=== PATIENT | male | born 1980 | race Caucasian/White ===

== ENCOUNTER 2018-01-11 05:46 | Observation (INO) | payer OTHER ==
[2018-01-11 06:21] VITALS: BMI 26.6
--- NOTE | 2018-01-11 07:14 | PDOC ---
History of Present Illness - General Chief Complaint: Chest Pain Stated Complaint: CHEST DISCOMFORT Time Seen by Provider: 01/11/18 07:14 - History of Present Illness Initial Comments: 01/11/18 08:16 The patient is a 37 year old male with no significant PMH who presents for evaluation of chest pain and palpitations. The patient reports that he used cocaine yesterday evening and has been having palpitations and left sided chest discomfort prompting his presentation to the ED for further evaluation. He notes that he has used cocaine in the past, but has never experienced these symptoms before. He otherwise denies fevers, chills, SOB, nausea, vomiting, abdominal pain, or changes with urination or bowel movements. Past History - Past Medical History Allergies/Adverse Reactions: Allergies Allergy/AdvReac Type Severity Reaction Status Date / Time No Known Allergies Allergy Verified 01/11/18 06:20 Home Medications: Ambulatory Orders NK [No Known Home Medication] 01/11/18 - Suicide/Smoking/Psychosocial Hx Smoking History: Never smoked Have you smoked in the past 12 months: No Number of Cigarettes Smoked Daily: 0 Information on smoking cessation initiated: No Hx Alcohol Use: No Drug/Substance Use Hx: No Substance Use Type: None Review of Systems - Review of Systems Comments:: 01/11/18 08:18 Constitutional: No fevers, chills, fatigue, malaise HEENT: No Rhinorrhea, nasal congestion, visual changes Cardiovascular: Chest pain, palpitations. No syncope, lightheadedness Respiratory: No Cough, SOB, Hemoptysis, Gastrointestinal: No Abdominal pain, Nausea, Vomiting, Constipation, Diarrhea, Melena Genitourinary: No Dysuria, Frequency, Urgency, Hesitancy, Hematuria, Flank pain Musculoskeletal: No Myalgia, arthralgia Skin: No rashes, itching, bruising, pallor Neurologic: No Headache, Dizziness, Numbness, Weakness, or Tingling Psychiatric: No Hallucinations. No SI or HI *Physical Exam - Vital Signs Last Vital Signs Temp Pulse Resp BP Pulse Ox 97.4 F L 86 20 117/70 97 01/11/18 06:20 01/11/18 06:20 01/11/18 06:20 01/11/18 06:20 01/11/18 06:20 - Physical Exam Comments: 01/11/18 08:18 General Appearance: Nourished. No Apparent Distress HEENT: No Pharyngeal Erythema, Tonsillar Exudate, Tonsillar Erythema Neck: No Cervical Lymphadenopathy Respiratory/Chest: Lungs Clear, Normal Breath Sounds. No Crackles, Rales, Rhonchi, Wheezing Cardiovascular: Regular Rhythm, Regular Rate. No Murmur, Gallops, Rubs Gastrointestinal/Abdominal: Normal Bowel Sounds, Soft. No Guarding, Rebound, Tenderness Musculoskeletal: No CVA Tenderness Extremity: Normal Capillary Refill Integumentary: Normal Color, Dry, Warm Neurologic: Fully Oriented, Alert, Normal Mood/Affect, Normal Response, Heart Score/ECG Review #1 ECG reviewed & interpreted by me at: 08:19 General ECG Interpretation: Sinus Rhythm, Normal Rate, Normal Intervals, No acute ischemic changes ED Treatment Course - LABORATORY CBC & Chemistry Diagram: 01/11/18 07:40 01/11/18 07:40 Medical Decision Making - Medical Decision Making 01/11/18 08:19 The patient is a 37 year old male with no significant PMH who presents for evaluation of chest pain and palpitations. Differential includes but is not limited to: ACS, Musculoskeletal, Infectious, Metabolic Derangement. Given the patient's symptoms and physical exam, we will obtain a cbc, cmp, troponin, ua, urine tox, ekg, chest plain film to evaluate further. Given his history of cocaine use, it is likely his symptoms are related and the patient will likely require observation admission for further monitoring given his symptoms and cocaine use. We will continue to monitor and reassess while here in the ED. 01/11/18 16:26 CBC, cmp, troponin are unremarkable. Chest plain film is unremarkable. We discussed the case with the admitting team who accepted the patient for admission. *DC/Admit/Observation/Transfer Diagnosis at time of Disposition: Palpitations, Cocaine use Chest pain Qualifiers: Chest pain type: unspecified Qualified Code(s): R07.9 - Chest pain, unspecified - Discharge Dispostion Condition at time of disposition: Stable Decision to Admit order: Yes - Referrals - Patient Instructions - Post Discharge Activity
[2018-01-11] MEDS ORDERED: ACETAMINOPHEN 1000 MG/100 ML VIAL (NON FORMULARY) IVPB ONE (07:26)
[2018-01-11] MEDS ORDERED: ACETAMINOPHEN INJECTION 100 ML IVPB ONE (07:53)
--- NOTE | 2018-01-11 07:59 | PDOC ---
Attending Attestation - Resident Resident Name: Shyam Miner - ED Attending Attestation I have performed the following: I have examined & evaluated the patient, The case was reviewed & discussed with the resident, I agree w/resident's findings & plan, Exceptions are as noted - HPI HPI: 37 yo M no significant PMH presents with cp and palpitations. He states that he used cocaine last night, developed palpitations, chest pressure. He has used cocaine in the past but never had these symptoms before. No cough, fever, SOB, leg swelling. No prior history of heart problems, and he states that he had a negative workup once before. - Physicial Exam PE: GENERAL: Awake, alert, and fully oriented, in no acute distress HEAD: No signs of trauma EYES: PERRLA, EOMI, sclera anicteric, conjunctiva clear ENT: Auricles normal inspection, hearing grossly normal, nares patent, oropharynx clear without exudates. Moist mucosa NECK: Normal ROM, supple, no lymphadenopathy, JVD, or masses LUNGS: Breath sounds equal, clear to auscultation bilaterally. No wheezes, and no crackles HEART: Regular rate and rhythm, normal S1 and S2, no murmurs, rubs or gallops ABDOMEN: Soft, nontender, normoactive bowel sounds. No guarding, no rebound. No masses EXTREMITIES: Normal range of motion, no edema. No clubbing or cyanosis. No cords, erythema, or tenderness NEUROLOGICAL: Cranial nerves II through XII grossly intact. Normal speech, normal gait SKIN: Warm, Dry, normal turgor, no rashes or lesions noted. - Medical Decision Making Pt presents with cocaine chest pain. Currently c/o palpitations, but the chest pressure has resolved. Will obtain labs and plan on admission vs obs.
[2018-01-11 08:00] LABS: BASO % 0.5 % (0-2.0); EOS % 1.7 % (0-4.5); HEMATOCRIT 42.7 % (35.4-49); HEMOGLOBIN 14.5 GM/dL (11.7-16.9); LYMPH % 24.5 % (8-40); MEAN CELL VOLUME 82.3 fl (80-96); MEAN PLT VOLUME 8.6 fl (7.5-11.1); MONO % 8.2 % (3.8-10.2); NEUT % 65.1 % (42.8-82.8); PLATELET COUNT 207 K/MM3 (134-434); RBC 5.19 M/mm3 (4.00-5.60); RDW 13.2 % (11.9-15.9); WHITE BLOOD COUNT 7.2 K/mm3 (4.0-10.0)
[2018-01-11 08:31] LABS: ALBUMIN 3.7 g/dl (3.4-5.0); ANION GAP 8 (8-16); BILIRUBIN,TOTAL 0.6 mg/dL (0.2-1.0); BLOOD UREA NITROGEN 9 mg/dL (7-18); CALCIUM 8.8 mg/dL (8.5-10.1); CHLORIDE 109 mmol/L (98-107); CO2 27 mmol/L (21-32); GLUCOSE,RANDOM 73 mg/dL (74-106); POTASSIUM 4.4 mmol/L (3.5-5.1); SGOT/AST 23 U/L (15-37); SGPT/ALT 33 U/L (12-78); SODIUM 144 mmol/L (136-145); TOT PROT 7.2 g/dl (6.4-8.2)
[2018-01-11 08:34] LABS: ALK PHOS 89 U/L (45-117)
--- NOTE | 2018-01-11 08:50 | HP ---
CHIEF COMPLAINT: Chest pressure and palpitations PCP: None HISTORY OF PRESENT ILLNESS: The patient is a 37 year old male with a PMH significant for renal calculi, presents for evaluation of chest pain and palpitations. The patient reports that he used cocaine yesterday evening and has been having palpitations and left sided chest discomfort prompting his presentation to the ED for further evaluation. He notes that he has used cocaine in the past, but has never experienced these symptoms before. He otherwise denies fevers, chills, SOB, nausea, vomiting, abdominal pain, or changes with urination or bowel movements. ER course was notable for: (1) Utox +cocaine (2) Trop neg x 1 Recent Travel: No PAST MEDICAL HISTORY: Renal calculi PAST SURGICAL HISTORY: None reported Social History: Smoking: no Alcohol: no Drugs: cocaine on weekends Family History: Allergies No Known Allergies Allergy (Verified 01/11/18 06:20) HOME MEDICATIONS: Home Medications Medication Instructions Recorded NK [No Known Home Medication] 01/11/18 REVIEW OF SYSTEMS CONSTITUTIONAL: Absent: fever, chills, diaphoresis, generalized weakness, malaise, loss of appetite, weight change HEENT: Absent: rhinorrhea, nasal congestion, throat pain, throat swelling, difficulty swallowing, mouth swelling, ear pain, eye pain, visual changes CARDIOVASCULAR: +chest pain/pressure, palpitations Absent: syncope, palpitations, lightheadedness, peripheral edema RESPIRATORY: Absent: cough, shortness of breath, dyspnea with exertion, orthopnea, wheezing, stridor, hemoptysis GASTROINTESTINAL: Absent: abdominal pain, abdominal distension, nausea, vomiting, diarrhea, constipation, melena, hematochezia GENITOURINARY: Absent: dysuria, frequency, urgency, hesitancy, hematuria, flank pain, genital pain MUSCULOSKELETAL: Absent: myalgia, arthralgia, joint swelling, back pain, neck pain SKIN: Absent: rash, itching, pallor HEMATOLOGIC/IMMUNOLOGIC: Absent: easy bleeding, easy bruising, lymphadenopathy, frequent infections ENDOCRINE: Absent: unexplained weight gain, unexplained weight loss, heat intolerance, cold intolerance NEUROLOGIC: Absent: headache, focal weakness or paresthesias, dizziness, unsteady gait, seizure, mental status changes, bladder or bowel incontinence PSYCHIATRIC: Absent: anxiety, depression, suicidal or homicidal ideation, hallucinations. PHYSICAL EXAMINATION Vital Signs - 24 hr 01/11/18 06:20 Temperature 97.4 F L Pulse Rate 86 Respiratory 20 Rate Blood Pressure 117/70 O2 Sat by Pulse 97 Oximetry (%) GENERAL: Awake, alert, and fully oriented, in no acute distress. HEAD: Normal with no signs of trauma. EYES: Pupils equal, round and reactive to light, extraocular movements intact, sclera anicteric, conjunctiva clear. No lid lag. EARS, NOSE, THROAT: Ears normal, nares patent, oropharynx clear without exudates. Moist mucous membranes. NECK: Normal range of motion, supple without lymphadenopathy, JVD, or masses. LUNGS: Breath sounds equal, clear to auscultation bilaterally. No wheezes, and no crackles. No accessory muscle use. HEART: Regular rate and rhythm, normal S1 and S2 without murmur, rub or gallop. ABDOMEN: Soft, nontender, not distended, normoactive bowel sounds, no guarding, no rebound, no masses. No hepatomegaly or splenomegaly. MUSCULOSKELETAL: Normal range of motion at all joints. No bony deformities or tenderness. No CVA tenderness. UPPER EXTREMITIES: 2+ pulses, warm, well-perfused. No cyanosis. No clubbing. No peripheral edema. LOWER EXTREMITIES: 2+ pulses, warm, well-perfused. No calf tenderness. No peripheral edema. NEUROLOGICAL: Cranial nerves II-XII intact. Normal speech. Steady on feet. Laboratory Results - last 24 hr 01/11/18 01/11/18 07:40 07:40 WBC 7.2 RBC 5.19 Hgb 14.5 Hct 42.7 MCV 82.3 MCH 28.0 MCHC 34.0 RDW 13.2 Plt Count 207 MPV 8.6 Absolute Neuts (auto) 4.7 Neutrophils % 65.1 Lymphocytes % 24.5 D Monocytes % 8.2 Eosinophils % 1.7 Basophils % 0.5 Nucleated RBC % 0 Sodium 144 Potassium 4.4 Chloride 109 H Carbon Dioxide 27 Anion Gap 8 BUN 9 Creatinine 1.0 Creat Clearance w eGFR > 60 Random Glucose 73 L D Calcium 8.8 Total Bilirubin 0.6 AST 23 ALT 33 Alkaline Phosphatase 89 Creatine Kinase 92 Troponin I < 0.02 Total Protein 7.2 Albumin 3.7 ASSESSMENT/PLAN: 37 year-old male with a PMH significant for renal calculi. Placed on observation for an episode of chest pain after using cocaine. Chest pain --troponin neg x 1, two pending --ECG: not suggestive of acute ischemic event --CXR: unremarkable --telemetry monitoring --echo ordered --cardiology consult --no beta blockers --ASA 81mg Cocaine use --Utox + cocaine DVT prophylaxis: oob, ambulation Dispo: requires continued observation. Full code. Visit type - Emergency Visit Emergency Visit: Yes ED Registration Date: 01/11/18 Care time: The patient presented to the Emergency Department on the above date and was hospitalized for further evaluation of their emergent condition. - New Patient This patient is new to me today: Yes Date on this admission: 01/11/18 - Critical Care Critical Care patient: No Hospitalist Screening - Colonoscopy Questionnaire Colonoscopy Questionnaire: Colonoscopy Questionnaire - Patient: 50 - 75 years old and never had a screening colonoscopy: No History of colon or rectal polyps, or CA: No History of IBD, Crohn's disease or UC: No History of abdominal radiation therapy as a child: No - Relative: 1 with colon or rectal CA, or polyps at age 60 or younger: Unknown Colon or rectal CA diagnosed at age 45 or younger: Unknown Multiple relatives with colon or rectal CA: Unknown - Outcome: Screening Result: Negative Screen
[2018-01-11 08:57] LABS: URINE APPEARANCE CLEAR; URINE BILIRUBIN NEGATIVE (<2.0 mg/dL); URINE COLOR YELLOW; URINE GLUCOSE (UA) NEGATIVE (NEGATIVE); URINE KETONE NEGATIVE (NEGATIVE); URINE LEUK ESTERASE NEGATIVE (NEGATIVE); URINE NITRITE NEGATIVE (NEGATIVE); URINE PROTEIN NEGATIVE (NEGATIVE); URINE UROBILINOGEN NEGATIVE mg/dL (0.2-1.0)
--- NOTE | 2018-01-11 08:58 | EKG ---
Test Reason : Blood Pressure : / mmHG Vent. Rate : 073 BPM Atrial Rate : 073 BPM P-R Int : 198 ms QRS Dur : 088 ms QT Int : 354 ms P-R-T Axes : 055 060 039 degrees QTc Int : 389 ms NORMAL SINUS RHYTHM WITH SINUS ARRHYTHMIA NORMAL ECG WHEN COMPARED WITH ECG OF 25-MAY-2011 00:02, NONSPECIFIC T WAVE ABNORMALITY NO LONGER EVIDENT IN ANTERIOR LEADS Confirmed by JOHN TINAJERO, GEORGI ([id number]) on 01/11/2018 8:58:29 AM Referred By: Confirmed By:GEORGI LOPEZ MD
[2018-01-11 09:36] LABS: COCAINE, UR POSITIVE ng/ml (CUTOFF=300); METHADONE, UR NEGATIVE ng/ml (CUTOFF=300); OPIATES, URI NEGATIVE ng/ml (CUTOFF=300); PHENCYCLIDINE,URINE NEGATIVE ng/ml (CUTOFF=25); URINE AMPHETAMINES NEGATIVE ng/ml (CUTOFF=500); URINE BARBITURATES NEGATIVE ng/ml (CUTOFF=200); URINE BENZODIAZEPINES NEGATIVE ng/ml (CUTOFF=200)
[2018-01-11] MEDS: ASPIRIN COATED 81 MG TABLET.EC PO SCH (18:17)
[2018-01-11] MEDS ORDERED: ASPIRIN COATED 81 MG TABLET.EC ONE ×2 (18:18→19:17)
[2018-01-11] MEDS ORDERED: SODIUM CHLORIDE 1,000 ML IV STA (19:03)
[2018-01-11] MEDS ORDERED: SODIUM CHLORIDE 1,000 ML IV SCH (19:15)
[2018-01-12 07:52] LABS: ANION GAP 5 (8-16); BLOOD UREA NITROGEN 13 mg/dL (7-18); CALCIUM 8.6 mg/dL (8.5-10.1); CHLORIDE 106 mmol/L (98-107); CO2 28 mmol/L (21-32); CREATININE 0.9 mg/dL (0.7-1.3); GLUCOSE,RANDOM 82 mg/dL (74-106); MAGNESIUM 1.9 mg/dL (1.8-2.4); POTASSIUM 4.3 mmol/L (3.5-5.1); SODIUM 139 mmol/L (136-145)
[2018-01-12] MEDS: ASPIRIN COATED 81 MG TABLET.EC PO SCH (10:03)
--- NOTE | 2018-01-12 11:25 | EKG ---
Test Reason : Blood Pressure : / mmHG Vent. Rate : 058 BPM Atrial Rate : 058 BPM P-R Int : 188 ms QRS Dur : 090 ms QT Int : 390 ms P-R-T Axes : 053 069 040 degrees QTc Int : 382 ms SINUS BRADYCARDIA OTHERWISE NORMAL ECG WHEN COMPARED WITH ECG OF 11-JAN-2018 06:23, NO SIGNIFICANT CHANGE WAS FOUND Confirmed by DORETHA GOULD MD ([id number]) on 01/12/2018 11:25:07 AM Referred By: LEONARD REY Confirmed By:DORETHA GOULD MD
--- NOTE | 2018-01-12 12:23 | CON.CARD ---
Consult Consult Specialty:: Cardiology Reason for Consultation:: induced CP - History of Present Illness History of Present Illness: 37 yo M no significant PMH presents with cp and palpitations. He states that he used cocaine last night, developed palpitations, chest pressure. He has used cocaine in the past but never had these symptoms before. No cough, fever, SOB, leg swelling. No prior history of heart problems, and he states that he had a negative workup once before. - History Source History Provided By: Patient, Medical Record - Alcohol/Substance Use Hx Alcohol Use: No - Smoking History Smoking history: Never smoked Have you smoked in the past 12 months: No Aproximately how many cigarettes per day: 0 Home Medications - Allergies Allergies/Adverse Reactions: Allergies Allergy/AdvReac Type Severity Reaction Status Date / Time No Known Allergies Allergy Verified 01/11/18 06:20 - Home Medications Home Medications: Ambulatory Orders NK [No Known Home Medication] 12/06/17 NK [No Known Home Medication] 01/11/18 Review of Systems - Review of Systems Constitutional: reports: No Symptoms Eyes: reports: No Symptoms HENT: reports: No Symptoms Neck: reports: No Symptoms Cardiovascular: reports: Chest Pain Gastrointestinal: reports: No Symptoms Genitourinary: reports: No Symptoms Breasts: reports: No Symptoms Reported Musculoskeletal: reports: No Symptoms Integumentary: reports: No Symptoms Neurological: reports: No Symptoms Endocrine: reports: No Symptoms Hematology/Lymphatic: reports: No Symptoms Psychiatric: reports: No Symptoms Vital Signs: Vital Signs Temperature 97.8 F 01/12/18 08:23 Pulse Rate 56 L 01/12/18 08:23 Respiratory Rate 18 01/12/18 08:31 Blood Pressure 116/61 01/12/18 08:23 O2 Sat by Pulse Oximetry (%) 98 01/12/18 08:31 Constitutional: Yes: Well Nourished, No Distress, Calm Eyes: Yes: WNL, Conjunctiva Clear, EOM Intact HENT: Yes: WNL, Atraumatic, Normocephalic Neck: Yes: WNL, Supple, Trachea Midline Respiratory: Yes: WNL, Regular, CTA Bilaterally Gastrointestinal: Yes: WNL, Normal Bowel Sounds Renal/: Yes: WNL Cardiovascular: Yes: WNL, Regular Rate and Rhythm Musculoskeletal: Yes: WNL Extremities: Yes: WNL Integumentary: Yes: WNL Neurological: Yes: WNL, Alert, Oriented ...Motor Strength: WNL Psychiatric: Yes: WNL, Alert, Oriented - Other Data Labs, Other Data: CBC, BMP 01/11/18 07:40 01/12/18 06:00 Troponin, BNP 01/11/18 01/11/18 14:15 19:59 Troponin I < 0.02 < 0.02 Troponin, BNP 01/11/18 01/11/18 14:15 19:59 Troponin I < 0.02 < 0.02 Laboratory Tests 01/11/18 01/11/18 01/11/18 07:40 07:40 08:15 WBC 7.2 RBC 5.19 Hgb 14.5 Hct 42.7 MCV 82.3 MCH 28.0 MCHC 34.0 RDW 13.2 Plt Count 207 MPV 8.6 Absolute Neuts (auto) 4.7 Neutrophils % 65.1 Lymphocytes % 24.5 D Monocytes % 8.2 Eosinophils % 1.7 Basophils % 0.5 Nucleated RBC % 0 Sodium 144 Potassium 4.4 Chloride 109 H Carbon Dioxide 27 Anion Gap 8 BUN 9 Creatinine 1.0 Creat Clearance w eGFR > 60 Random Glucose 73 L D Calcium 8.8 Magnesium Total Bilirubin 0.6 AST 23 ALT 33 Alkaline Phosphatase 89 Creatine Kinase 92 Troponin I < 0.02 Total Protein 7.2 Albumin 3.7 Urine Color Yellow Urine Appearance Clear Urine pH 5.0 Ur Specific Stephan 1.017 Urine Protein Negative Urine Glucose (UA) Negative Urine Ketones Negative Urine Blood Negative Urine Nitrite Negative Urine Bilirubin Negative Urine Urobilinogen Negative Ur Leukocyte Esterase Negative Opiates Screen Methadone Screen Barbiturate Screen Phencyclidine Screen Ur Amphetamines Screen MDMA (Ecstasy) Screen Benzodiazepines Screen Cocaine Screen U Marijuana (THC) Screen 01/11/18 01/11/18 01/11/18 08:15 14:15 19:59 WBC RBC Hgb Hct MCV MCH MCHC RDW Plt Count MPV Absolute Neuts (auto) Neutrophils % Lymphocytes % Monocytes % Eosinophils % Basophils % Nucleated RBC % Sodium Potassium Chloride Carbon Dioxide Anion Gap BUN Creatinine Creat Clearance w eGFR Random Glucose Calcium Magnesium Total Bilirubin AST ALT Alkaline Phosphatase Creatine Kinase Troponin I < 0.02 < 0.02 Total Protein Albumin Urine Color Urine Appearance Urine pH Ur Specific Stephan Urine Protein Urine Glucose (UA) Urine Ketones Urine Blood Urine Nitrite Urine Bilirubin Urine Urobilinogen Ur Leukocyte Esterase Opiates Screen Negative Methadone Screen Negative Barbiturate Screen Negative Phencyclidine Screen Negative Ur Amphetamines Screen Negative MDMA (Ecstasy) Screen Negative Benzodiazepines Screen Negative Cocaine Screen Positive U Marijuana (THC) Screen Negative 01/12/18 06:00 WBC RBC Hgb Hct MCV MCH MCHC RDW Plt Count MPV Absolute Neuts (auto) Neutrophils % Lymphocytes % Monocytes % Eosinophils % Basophils % Nucleated RBC % Sodium 139 Potassium 4.3 Chloride 106 Carbon Dioxide 28 Anion Gap 5 L BUN 13 Creatinine 0.9 Creat Clearance w eGFR > 60 Random Glucose 82 Calcium 8.6 Magnesium 1.9 Total Bilirubin AST ALT Alkaline Phosphatase Creatine Kinase Troponin I Total Protein Albumin Urine Color Urine Appearance Urine pH Ur Specific Stephan Urine Protein Urine Glucose (UA) Urine Ketones Urine Blood Urine Nitrite Urine Bilirubin Urine Urobilinogen Ur Leukocyte Esterase Opiates Screen Methadone Screen Barbiturate Screen Phencyclidine Screen Ur Amphetamines Screen MDMA (Ecstasy) Screen Benzodiazepines Screen Cocaine Screen U Marijuana (THC) Screen Imaging - Results Chest X-ray: Image Reviewed (no i/e) EKG: Image Reviewed (s amelia wnl) Problem List - Problems (1) Chest pain Code(s): R07.9 - CHEST PAIN, UNSPECIFIED Qualifiers: Chest pain type: unspecified Qualified Code(s): R07.9 - Chest pain, unspecified (2) Cocaine use Code(s): F14.90 - COCAINE USE, UNSPECIFIED, UNCOMPLICATED (3) Palpitations Code(s): R00.2 - PALPITATIONS (4) Cocaine abuse Code(s): F14.10 - COCAINE ABUSE, UNCOMPLICATED (5) ETOH abuse Code(s): F10.10 - ALCOHOL ABUSE, UNCOMPLICATED (6) Kidney stone on right side Code(s): N20.0 - CALCULUS OF KIDNEY (7) Palpitations Code(s): R00.2 - PALPITATIONS Assessment/Plan cocaine induced cp r/o mi neg plan drug rehab / consulting echo EST keep ldl below 70 asa
--- NOTE | 2018-01-12 12:46 | ECHO ---
Name: ALEKSANDRA KAPLAN Exam:Adult Echocardiogram Study Date: 01/12/2018 08:59 AM Age: 37 yrs Reason For Study: CHEST PAIN COCAINE USE Height: 65 in Weight: 160 lb BSA: 1.8 m2 MMode/2D Measurements & Calculations IVSd: 0.91 cm Ao root diam: 2.9 cm LVIDd: 4.6 cm LA dimension: 3.7 cm LVIDs: 3.3 cm LVPWd: 0.84 cm EDV(Teich): 97.2 ml TAPSE: 2.2 cm ESV(Teich): 45.3 ml RV S Bayron: 12.5 cm/sec Doppler Measurements & Calculations MV E max bayron: 69.6 cm/sec TR max bayron: 177.1 cm/sec MV A max bayron: 40.0 cm/sec TR max P.8 mmHg MV E/A: 1.7 MV dec time: 0.19 sec PA V2 max: 89.5 cm/sec PI end-d bayron: 80.8 cm/sec PA max P.2 mmHg Med Peak E' Bayron: 11.4 cm/sec Med E/e': 6.1 Lat Peak E' Bayron: 14.0 cm/sec Lat E/e': 5.0 Procedure The study was technically adequate with some images being suboptimal in quality. Left Ventricle The left ventricle is normal in size. Left ventricular systolic function is normal. Ejection Fraction = 55- 60%. No regional wall motion abnormalities noted. Right Ventricle The right ventricle is normal size. The right ventricular systolic function is normal. RV systolic TD I is 12.4 cm/s. Atria The left atrial size is normal. Right atrial size is normal. Mitral Valve There is mild mitral annular calcification. There is mild mitral regurgitation. Tricuspid Valve The tricuspid valve is normal in structure and function. There is mild tricuspid regurgitation. Aortic Valve The aortic valve is normal in structure and function. No aortic regurgitation is present. Pulmonic Valve The pulmonic valve is not well visualized. Mild pulmonic valvular regurgitation. Great Vessels The aortic root is normal size. Pericardium/Pleura There is no pericardial effusion. Interpretation Summary The left ventricle is normal in size. Left ventricular systolic function is normal. No regional wall motion abnormalities noted. Ejection Fraction = 55-60%. The right ventricular systolic function is normal. The left atrial size is normal. Right atrial size is normal. There is mild mitral annular calcification. There is mild mitral regurgitation. There is mild tricuspid regurgitation. Mild pulmonic valvular regurgitation. There is no pericardial effusion. Previous study is not available for comparison Juan Gudino MD 01/12/2018 12:45 PM
[2018-01-12 15:45] VITALS: BP 128/79; PULSE 71; TEMP 98.3
--- NOTE | 2018-01-12 16:56 | TRE ---
Protocol Name : MAYRA Max Work Load (METS*10) : 153 Time In Exercise Phase : 00:13:00 Max. Systolic BP : 178 mmHg Max Diastolic BP : 80 mmHg Max Heart Rate : 173 BPM Max Predicted Heart Rate : 183 BPM Attending Physician : DR. GOULD Reason For Termination : Target Heart Rate Achieved Reason for Test : CHEST PAIN Stress Protocol : MAYRA Rest HR : 70 BPM PeakEx METs : 15.3 METS Arrhythmias : No Arrhythmias Resting ECG : Normal Recovery ECG Response (OLD) : Overall Impression : Normal stress test Chest Pain : No Chest Pain HR Response To Exercise : Normal Overall HR Response To Exercise BP Response To Exercise : Normal Resting BP with Appropriate Response Functional Capacity : Above Average (> 20%) Diagnosis : 1. NEGATIVE STRESS TEST 2. APPROPRIATE BLOOD PRESSURE RESPONSE. 3. GOOD EXERCISE TOLERANCE AND CAPACITY. PATIENT EXERCISED 13 MIN INTO STAGE 5 MAYRA PROTOCOL AND ACHIEVED 94% MPTHR 4. NO SIGNIFCANT ECG ABNORMALITIES ARE SEEN Confirmed by LUIS FERNANDO TINAJERO, DORETHA ([id number]) on 01/12/2018 4:56:11 PM
--- NOTE | 2018-01-12 17:09 | DS ---
Physical Exam: SUBJECTIVE: Patient seen and examined OBJECTIVE: Vital Signs Period Temp Pulse Resp BP Sys/Carreno Pulse Ox Last 24 Hr 97.8 F-98.3 F 56-71 18-18 116-128/61-79 98-98 PHYSICAL EXAM GENERAL: The patient is awake, alert, and fully oriented, in no acute distress. HEAD: Normal with no signs of trauma. EYES: PERRL, extraocular movements intact, sclera anicteric, conjunctiva clear. ENT: Ears normal, nares patent, oropharynx clear without exudates, moist mucous membranes. NECK: Trachea midline, full range of motion, supple. LUNGS: Breath sounds equal, clear to auscultation bilaterally, no wheezes, no crackles, no accessory muscle use. HEART: Regular rate and rhythm, S1, S2 without murmur, rub or gallop. ABDOMEN: Soft, nontender, nondistended, normoactive bowel sounds, no guarding, no rebound, no hepatosplenomegaly, no masses. EXTREMITIES: 2+ pulses, warm, well-perfused, no edema. NEUROLOGICAL: Cranial nerves II through XII grossly intact. Normal speech, gait not observed. PSYCH: Normal mood, normal affect. SKIN: Warm, dry, normal turgor, no rashes or lesions noted. LABS Laboratory Results - last 24 hr 01/11/18 01/12/18 19:59 06:00 Sodium 139 Potassium 4.3 Chloride 106 Carbon Dioxide 28 Anion Gap 5 L BUN 13 Creatinine 0.9 Creat Clearance w eGFR > 60 Random Glucose 82 Calcium 8.6 Magnesium 1.9 Troponin I < 0.02 HOSPITAL COURSE: Date of Admission:01/11/18 Date of Discharge: 01/12/18 Minutes to complete discharge: 35 Discharge Summary Reason For Visit: CHEST PAIN; PALPITATION Current Active Problems Chest pain (Acute) Cocaine use (Acute) Palpitations (Acute) Condition: Improved - Instructions Diet, Activity, Other Instructions: Your cardiac testing showed no damage to your heart. You MUST never use cocaine. NEVER as you risk serious injury and . It is recommended you seek regular medical care. We have enclosed the name of a doctor at the [facility] [place] Return to the emergency department for any new or worsening symptoms. Referrals: Alejo Garcia MD [Staff Physician] - Disposition: HOME - Home Medications Comprehensive Discharge Medication List: Ambulatory Orders NK [No Known Home Medication] 12/06/17 NK [No Known Home Medication] 01/11/18 This patient is new to me today: No Emergency Visit: Yes ED Registration Date: 01/11/18 Care time: The patient presented to the Emergency Department on the above date and was hospitalized for further evaluation of their emergent condition. Critical Care patient: No - Discharge Referral Referred to [facility] Med [facility].C.: No
== END 2018-01-12 17:30 | disposition home or self-care (01) ==
LOC: JER 05:46 → SUATTDRO 05:46 → JERBED 08:55
PROVIDERS: ADMIT Internal Medicine; ATTEND Nurse Practitioner Acute Care
PROC: 3E033NZ Introduction of Analgesics, Hypnotics, Sedatives into Peripheral Vein, Percutaneous Approach (ICD-10-PCS; principal; 2018-01-11)
DX: R07.9 Chest pain, unspecified (principal); R00.2 Palpitations; F14.90 Cocaine use, unspecified, uncomplicated
CPT/HCPCS: 36415; 71046-TC-FY; 80048; 80053; 80307; 81003; 82550; 83735; 84484; 85025; 93005; 93010; 93017; 93018; 93306-TC; 99285-25; G0378; J0131; J7030

== ENCOUNTER 2018-11-17 05:48 | Emergency (ER) | payer OTHER | END 2018-11-17 16:00 | disposition home or self-care (01) | LOC: JER 05:48 ==

== ENCOUNTER 2019-04-24 17:05 | Emergency (ER) | payer SELFPAY ==
[2019-04-24 17:10] VITALS: BMI 25.8
--- NOTE | 2019-04-24 17:54 | PDOC ---
History of Present Illness <Cristel Oleray - Last Filed: 04/24/19 18:45> - General History Source: Patient Exam Limitations: No Limitations <Romel Ferrara - Last Filed: 04/24/19 19:59> - General Chief Complaint: Chest Pain Stated Complaint: chest pain Time Seen by Provider: 04/24/19 17:15 - History of Present Illness Initial Comments: 04/24/19 17:50 HISTORY OF PRESENT ILLNESS: 38-year-old male denies medical history presents to the emergency department for evaluation of left-sided chest pain which is been intermittent over the past week. 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 He reports the pain is been waxing and waning over the past 7 days with a maximum intensity the of 8/10 but is currently 5/10 which is where most of the time it is. He reports the pain worsened last night after using intranasal cocaine and drinking some alcohol. He reports when he has an increase in the pain he becomes acutely short of breath but resolves when the pain lessens. No recent travel or sick contacts. PAST MEDICAL HISTORY: Denies past medical history SURGICAL HISTORY: Denies ALLERGIES: No known drug allergies REVIEW OF SYSTEMS General/Constitutional: Denies fever or chills. Denies weakness, weight change. HEENT: Denies change in vision. Denies ear pain or discharge. Denies sore throat. Cardiovascular: See HPI Respiratory: Denies cough, wheezing, or hemoptysis. Gastrointestinal: Denies nausea, vomiting, diarrhea or constipation. Denies rectal bleeding. Genitourinary: Denies dysuria, frequency, or change in urination. Musculoskeletal: Denies joint or muscle swelling or pain. Denies neck or back pain. Skin and breasts: Denies rash or easy bruising. Neurologic: Denies headache, vertigo, loss of consciousness, or loss of sensation. Psychiatric: Denies depression or anxiety. Endocrine: Denies increased thirst. Denies abnormal weight change. Hematologic/Lymphatic: Denies anemia, easy bleeding, or history of blood clots. Allergic/Immunologic: Denies hives or skin allergy. Denies latex allergy. PHYSICAL EXAM General Appearance: Well-appearing, appropriately dressed. No apparent distress , no intoxication. HEENT: EOMI, PERRLA, normal ENT inspection, normal voice, TMs normal, pharynx normal. No conjunctival pallor. No photophobia, scleral icterus. Neck: Supple. Trachea midline. No tenderness, rigidity, carotid bruit, stridor , lymphadenopathy, or thyromegaly. Respiratory/Chest: Lungs CTAB. No shortness of breath, respiratory distress, accessory muscle use. No crackles, rales, rhonchi, stridor, wheezing, dullness. Tenderness to palpation over the left anterior chest with pressure over the pectoral muscle. No bony tenderness present. Cardiovascular: RRR. S1, S2. No JVD, murmur, bradycardia, tachycardia. Vascular Pulses: Dorsalis-Pedis (R): 2+, Dorsalis-Pedis (L): 2+ Gastrointestinal/Abdominal: Normal bowel sounds. Abdomen soft, non-distended. No tenderness or rebound tenderness. No organomegaly, pulsatile mass, guarding, hernia, hepatomegaly, splenomegaly. Neurologic: dietetics professor II-XII intact. Fully oriented, alert. Appropriate mood/affect. Motor strength 5/5. No appreciable EOM palsy, facial droop or sensory deficit. (Romel Ferrara) Past History <Cristel Oleary - Last Filed: 04/24/19 18:45> - Past Medical History COPD: No - Surgical History Cardiac Surgery: No Gastric Stapling: No - Immunization History Immunization Up to Date: No - Psycho Social/Smoking Cessation Hx Smoking History: Never smoked Have you smoked in the past 12 months: No Number of Cigarettes Smoked Daily: 0 Hx Alcohol Use: Yes Drug/Substance Use Hx: No Substance Use Type: None <Romel Ferrara - Last Filed: 04/24/19 19:59> - Past Medical History Allergies/Adverse Reactions: Allergies Allergy/AdvReac Type Severity Reaction Status Date / Time No Known Allergies Allergy Verified 04/24/19 17:10 Home Medications: Ambulatory Orders NK [No Known Home Medication] 04/24/19 - Vital Signs Last Vital Signs Temp Pulse Resp BP Pulse Ox 98 F 90 18 132/82 99 04/24/19 17:06 04/24/19 17:06 04/24/19 17:06 04/24/19 17:06 04/24/19 17:06 Heart Score/ECG Review - History History: Moderately suspicious - Electrocardiogram EKG: Normal - Age Age: </= 45 - Risk Factors Based on the list above the patient has:: 1-2 risk factors - Troponin Troponin: </= normal limit - Score Heart Score - Total: 2 <Romel Ferrara - Last Filed: 04/24/19 19:59> ED Treatment Course - LABORATORY CBC & Chemistry Diagram: 04/24/19 18:37 04/24/19 18:37 <Cristel Oleary - Last Filed: 04/24/19 18:45> - LABORATORY CBC & Chemistry Diagram: 04/24/19 18:37 04/24/19 18:37 <JosiasRomel - Last Filed: 04/24/19 19:59> - ADDITIONAL ORDERS Additional order review: Laboratory Results 04/24/19 04/24/19 18:37 18:37 Sodium 141 Potassium 3.9 Chloride 109 H Carbon Dioxide 30 Anion Gap 3 L BUN 9.0 Creatinine 0.9 Est GFR (CKD-EPI)AfAm 125.13 Est GFR (CKD-EPI)NonAf 107.97 Random Glucose 81 Calcium 9.0 Magnesium 2.3 Total Bilirubin 0.5 AST 21 ALT 44 Alkaline Phosphatase 89 Creatine Kinase 257 Troponin I < 0.02 Total Protein 7.5 Albumin 4.1 Lipase 81 04/24/19 18:37 RBC 5.74 H MCV 80.8 MCHC 33.6 RDW 13.3 MPV 8.5 Neutrophils % 66.3 Lymphocytes % 22.3 D Monocytes % 8.9 Eosinophils % 0.5 Basophils % 2.0 D - RADIOLOGY Radiology Studies Ordered: Category Date Time Status CHEST PA & LAT [RAD] Stat Radiology 04/24/19 17:55 Taken Medical Decision Making <Cristel Oleary - Last Filed: 04/24/19 18:45> <JosiasRomel - Last Filed: 04/24/19 19:59> - Medical Decision Making The patient was seen and evaluated in conjunction with midlevel provider under my direct supervision, ancillary studies were reviewed. I agree with the plan as outlined with NEGRO Ferrara. HPI, workup/dispo as outlined. VS reviewed, wnl. anticipate discharge, pcp followup, return precautions 04/24/19 18:45 (Cristel Oleary) 04/24/19 17:52 A/P: 38-year-old male left-sided chest pain intermittent over the past 7 days Pain is likely musculoskeletal pain with coronary vasospasm secondary to cocaine use. Perc-0 Differential diagnosis includes but is not limited to-ACS, pneumonia, musculoskeletal pain, GERD EKG Labs including cardiac profile Chest x-ray Urinalysis Reassess 04/24/19 19:51 EKG sinus rhythm with rate of 85. Normal intervals present. QTc 414 ms. Normal axis. No ischemic changes present. Laboratory testing is unremarkable with a troponin of less than 0.02. Chest x-ray as read by me: Angles sharp. Cardiac silhouette is within normal limits. No focal consolidations or infiltrates present. No significant change found from study performed 11/17/2018. Patient currently is pain-free. We will discharge the patient home with referral for cardiology and instructions to follow-up with his primary doctor. Patient has been instructed to take Tylenol or Naprosyn for pain relief. I discussed the physical exam findings, ancillary test results and final diagnoses with the patient. I answered all of the patient's questions. The patient was satisfied with the care received and felt comfortable with the discharge plan and treatment plan. The patient will call their primary care physician within 24 hours to arrange follow-up and will return to the Emergency Department with any new, persistent or worsening symptoms. (Romel Ferrara) Discharge <MamtaCristel Monreal - Last Filed: 04/24/19 18:45> - Discharge Information Problems reviewed: Yes - Admission No <Romel Ferrara - Last Filed: 04/24/19 19:59> - Discharge Information Clinical Impression/Diagnosis: Cocaine use Chest pain Qualifiers: Chest pain type: other chest pain Qualified Code(s): R07.89 - Other chest pain ; R07.8 - Other chest pain Condition: Fair Disposition: HOME - Follow up/Referral Referrals: Juan Gudino MD [Staff Physician] - - Patient Discharge Instructions Patient Printed Discharge Instructions: DI for Chest Pain Additional Instructions: Avoid cocaine use. Take Tylenol or Naprosyn for your pain. 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 Avoid Motrin, Advil or ibuprofen for your pain. You have been given a number for visual aid expert. Please schedule appointment for follow-up. Your emergency department visit is incomplete until you follow-up with your regular doctor. Return to the emergency department for any new or worsening symptoms. Thank you very much for choosing us to provide your emergent health care needs. Suma el consumo de cocana. [place] Tylenol o Naprosyn para hameed dolor. Siga las instrucciones del fabricante para la dosis adecuada. Evite Motrin, Advil o ibuprofeno para hameed dolor. Le valero dado un nmero para cardilogo. Por favor, programe matheus jes para el seguimiento. Hameed visita al departamento de emergencias est incompleta hasta que cliff un seguimiento con hameed mdico habitual. Regrese al departamento de emergencias por cualquier sntoma nuevo o que empeore. Muchas mariam por elegirnos para satisfacer michelle necesidades de atencin mdica de emergencia. - Post Discharge Activity Work/Back to School Note: Back to Work
[2019-04-24 18:45] LABS: EOS % 0.5 % (0-4.5); HEMATOCRIT 46.4 % (35.4-49); HEMOGLOBIN 15.6 GM/dL (11.7-16.9); LYMPH % 22.3 % (8-40); MCH 27.2 pg (25.7-33.7); MCHC 33.6 g/dl (32.0-35.9); MEAN CELL VOLUME 80.8 fl (80-96); MEAN PLT VOLUME 8.5 fl (7.5-11.1); MONO % 8.9 % (3.8-10.2); NEUT % 66.3 % (42.8-82.8); PLATELET COUNT 212 K/MM3 (134-434); RBC 5.74 M/mm3 (4.00-5.60); RDW 13.3 % (11.9-15.9); WHITE BLOOD COUNT 12.9 K/mm3 (4.0-10.0)
[2019-04-24 19:19] LABS: ALBUMIN 4.1 g/dl (3.4-5.0); BILIRUBIN,TOTAL 0.5 mg/dL (0.2-1); CREATININE 0.9 mg/dL (0.55-1.3); MAGNESIUM 2.3 mg/dL (1.8-2.4); POTASSIUM 3.9 mmol/L (3.5-5.1); TOT PROT 7.5 g/dl (6.4-8.2)
[2019-04-24 20:08] LABS: INR 1.1 (0.83-1.09)
[2019-04-24 20:10] LABS: ACTIVATED PTT 31.2 SECONDS (25.2-36.5)
[2019-04-25 02:14] VITALS: BP 113/62; PULSE 77; TEMP 98.3
--- NOTE | 2019-04-25 17:03 | EKG ---
Test Reason : Blood Pressure : / mmHG Vent. Rate : 085 BPM Atrial Rate : 085 BPM P-R Int : 180 ms QRS Dur : 088 ms QT Int : 348 ms P-R-T Axes : 052 044 034 degrees QTc Int : 414 ms NORMAL SINUS RHYTHM NORMAL ECG WHEN COMPARED WITH ECG OF 17-NOV-2018 08:30, PREMATURE VENTRICULAR COMPLEXES ARE NO LONGER PRESENT PREMATURE ATRIAL COMPLEXES ARE NO LONGER PRESENT Confirmed by JAMIE SUMMERS MD ([id number]) on 04/25/2019 5:02:51 PM Referred By: Confirmed By:JAMIE SUMMERS MD
== END 2019-04-24 20:37 | disposition home or self-care (01) ==
LOC: JER 17:05
DX: R07.89 Other chest pain (principal); F14.10 Cocaine abuse, uncomplicated; F10.10 Alcohol abuse, uncomplicated
CPT/HCPCS: 36415; 71046-TC-FY; 80053; 82550; 82553; 83690; 83735; 84484; 85025; 85610; 85730; 93005; 93010; 99284-25

== ENCOUNTER 2020-02-01 04:17 | Emergency (ER) | payer OTHER ==
[2020-02-01] MEDS ORDERED: SODIUM CHLORIDE 1,000 ML IV STA (05:07)
[2020-02-01] MEDS ORDERED: morphine CARPU-JECT 2 MG/1 ML DISP.SYRIN IVPUSH ONE (05:07)
[2020-02-01] MEDS ORDERED: MORPHINE SULFATE 2 MG/ML VIAL ONE (05:07)
[2020-02-01] MEDS ORDERED: ONDANSETRON 4 MG/2 ML VIAL IVPUSH ONE (05:07)
--- NOTE | 2020-02-01 05:09 | PDOC ---
Attending Attestation - Resident Resident Name: Penny Castaneda - ED Attending Attestation I have performed the following: I have examined & evaluated the patient, The case was reviewed & discussed with the resident, I agree w/resident's findings & plan - HPI HPI: 02/01/20 05:53 see resident hpi - Physicial Exam PE: 02/01/20 05:54 see resident exam - Medical Decision Making 02/01/20 05:54 39-year-old male with history of kidney stones now with right right flank pain and vomiting Plan for labs, urinalysis CT scan abdomen and pelvis IV fluid normal saline, morphine and Zofran given for hydration and symptomatic control Discharge - Discharge Information Problems reviewed: Yes Clinical Impression/Diagnosis: Flank pain Condition: Fair - Follow up/Referral - Patient Discharge Instructions - Post Discharge Activity
--- NOTE | 2020-02-01 05:09 | PDOC ---
History of Present Illness - General Chief Complaint: Pain, Acute Stated Complaint: FLANK PAIN & VOMITING Time Seen by Provider: 02/01/20 04:58 - History of Present Illness Initial Comments: 02/01/20 05:09 HPI: 39 y/o M with hx of nephrolithiasis presenting with sudden onset severe right flank pain that woke him up from sleep about 3 hours ago. Pain is 10/10 and he reports nausea and 6 episodes of emesis. He reports pain is similar to previous kidney stone. He denies radiation of pain. He denies fever, chills, chest pain, SOB, dysuria, hematuria. He did not try any meds at home and reports adequate hydration. PMHx: as noted above ROS: as noted SHx: Denies tobacco use; no alcohol use; no rec drugs Allergies: NKDA ROS: GENERAL/CONSTITUTIONAL: No fever or chills. No weakness. HEAD, EYES, EARS, NOSE AND THROAT: No change in vision. No ear pain or discharge. No sore throat. CARDIOVASCULAR: No chest pain or shortness of breath RESPIRATORY: No cough, wheezing, or hemoptysis. GASTROINTESTINAL: +nausea, vomiting; no diarrhea or constipation. GENITOURINARY: No dysuria, frequency, or change in urination. MUSCULOSKELETAL: No joint or muscle swelling or pain. No neck or back pain. SKIN: No rash NEUROLOGIC: No headache, vertigo, loss of consciousness, or change in strength/sensation. ENDOCRINE: No increased thirst. No abnormal weight change HEMATOLOGIC/LYMPHATIC: No anemia, easy bleeding, or history of blood clots. ALLERGIC/IMMUNOLOGIC: No hives or skin allergy. PE: GENERAL: Awake, alert, and fully oriented, severe acute distress, writhing in pain and unable to sit still, pacing the room HEAD: No signs of trauma, normocephalic, atraumatic EYES: EOMI, sclera anicteric, conjunctiva clear ENT: Auricles normal inspection, hearing grossly normal, nares patent, oropharynx clear without exudates. Moist mucosa NECK: Normal ROM, no lymphadenopathy LUNGS: No increased work of breathing, symmetrical chest rise, clear to auscultation bilaterally, no wheezes, crackles or rhonchi HEART: Regular rate, regular rhythm, normal S1 and S2, no murmur, peripheral pulses 2+ and equal bilaterally. ABDOMEN: Soft, nondistended, nontender. No guarding, no rebound. No masses. Right CVAT MUSCULOSKELETAL: FROM NEUROLOGICAL: Cranial nerves II through XII grossly intact. Normal speech, stable gait, no focal sensorimotor deficits SKIN: Warm, Dry, normal turgor, no rashes or lesions noted Past History - Medical History Allergies/Adverse Reactions: Allergies Allergy/AdvReac Type Severity Reaction Status Date / Time No Known Allergies Allergy Verified 02/01/20 04:54 Home Medications: Ambulatory Orders Ibuprofen 600 mg PO QID #28 tablet 02/01/20 Ondansetron [Zofran *Odt*] 4 mg SL TID PRN #12 od.tablet 02/01/20 Tamsulosin HCl [Flomax] 0.4 mg PO DAILY #7 capsule 02/01/20 COPD: No - Surgical History Cardiac Surgery: No Gastric Stapling: No - Immunization History Immunization Up to Date: No - Psycho-Social/Smoking History Smoking History: Never smoked Have you smoked in the past 12 months: No Number of Cigarettes Smoked Daily: 0 Information on smoking cessation initiated: No - Substance Abuse Hx (Audit-C & DAST Scrn) How often the patient has a drink containing alcohol: Never Score: In Men: 4 or > Positive; In Women: 3 or > Positive: 0 Screen Result (Pos requires Nsg. Audit-10AR): Negative In the last yr the pt used illegal drug/Rx for NonMed reason: No Score: Yes response is considered Positive: 0 Screen Result (Positive result requires Nsg. DAST-10): Negative *Physical Exam - Vital Signs Last Vital Signs Temp Pulse Resp BP Pulse Ox 97.3 F L 87 22 H 144/73 99 02/01/20 04:52 02/01/20 04:52 02/01/20 04:52 02/01/20 04:52 02/01/20 04:52 ED Treatment Course - LABORATORY CBC & Chemistry Diagram: 02/01/20 05:15 02/01/20 05:15 Medical Decision Making - Medical Decision Making 02/01/20 05:31 39 y/o M with hx of nephrolithiasis presenting with sudden onset severe right flank pain that woke him up from sleep about 3 hours ago associated with nausea and emesis. VSS, AF. PE with RCVAT. DDx includes kidney stone, uti, pyelo -cbc, cmp, ua, CT cpiral -morphine, zofran, ivf -reassess 02/01/20 06:[address] with 3mm obstructing distal right ureteral stone at the right UVJ with mild right hydro and perinephric stranding pain improved from 10/10 to 7/10 will give toradol and reassess 02/01/20 06:47 pain improved to 5/10 UA pending. Will signout to day team to followup and UA and dispo appropriately. If non- infected, then DC with ibuprofen and flomax and zofran. If UTI present, will receive additional abx Discharge - Discharge Information Problems reviewed: Yes Clinical Impression/Diagnosis: Flank pain, Ureterolithiasis Condition: Fair - Additional Discharge Information Prescriptions: Tamsulosin HCl [Flomax] 0.4 mg PO DAILY #7 capsule Ibuprofen 600 mg PO QID #28 tablet - Follow up/Referral Referrals: Francois Negrete MD [Staff Physician] - - Patient Discharge Instructions Patient Printed Discharge Instructions: DI for Kidney Stones Additional Instructions: Additional Instructions: Please return to the emergency department with any new or worsening symptoms or concerns including worsening pain, persistent emesis and vomiting, fever. Please follow up with your primary care physician within 72 hours. Please followup with a urologist. Dr Negrete's clinic information is present in the packet, please schedule an appointment for this week. Please take Flomax daily for 7 days Please take ibuprofen 600mg every 6 hours for 1 week Please take zofran 4mg; it is a tablet that dissolves under your tongue. Take it every 8 hours as needed for nausea or vomiting. Instrucciones adicionales: Regrese al departamento de emergencias con cualquier sntoma o inquietud nuevo o que empeore, incluido un dolor que empeora, vmitos y vmitos persistentes, fiebre. Sandra un seguimiento con roy mdico de atencin primaria dentro de las 72 horas. Consulte con un urlogo. La informacin de la clnica del Dr. Negrete est presente en el paquete, programe matheus jes para esta semana. [place] Flomax diariamente amado 7 painter. [place] ibuprofeno 600 mg cada 6 horas amado 1 semana. [place] zofran 4 mg; es matheus tableta que se disuelve debajo de la lengua. Tmelo cada 8 horas segn sea necesario para las nuseas o los vmitos. Print Language: AUSTRALIAN - Post Discharge Activity
[2020-02-01 05:25] VITALS: BMI 25.8
[2020-02-01 05:25] LABS: BASO % 0.4 % (0-2.0); EOS % 1.2 % (0-4.5); HEMATOCRIT 44.4 % (35.4-49); HEMOGLOBIN 14.7 GM/dL (11.7-16.9); MCH 27.5 pg (25.7-33.7); MCHC 33.1 g/dl (32.0-35.9); MEAN CELL VOLUME 83.1 fl (80-96); MEAN PLT VOLUME 9.2 fl (7.5-11.1); MONO % 6.1 % (3.8-10.2); NEUT % 66.3 % (42.8-82.8); PLATELET COUNT 229 K/MM3 (134-434); RBC 5.35 M/mm3 (4.00-5.60); RDW 13.4 % (11.9-15.9); WHITE BLOOD COUNT 13.4 K/mm3 (4.0-10.0)
[2020-02-01 05:52] LABS: ALBUMIN 3.8 g/dl (3.4-5.0); BILIRUBIN,TOTAL 0.4 mg/dL (0.2-1); BLOOD UREA NITROGEN 18.5 mg/dL (7-18); CALCIUM 8.5 mg/dL (8.5-10.1); CREATININE 1.2 mg/dL (0.55-1.3); POTASSIUM 4.8 mmol/L (3.5-5.1); TOT PROT 7.5 g/dl (6.4-8.2)
[2020-02-01] MEDS ORDERED: KETOROLAC TROMETHAMINE 15 MG/ML VIAL IVPUSH ONE (06:31)
[2020-02-01] MEDS ORDERED: KETOROLAC TROMETHAMINE 15 MG/ML VIAL ONE (06:33)
[2020-02-01 07:25] LABS: EPI CELLS 2 /uL (0-25.1); HYALINE CASTS 1 /uL (0-3.1); URINE APPEARANCE CLEAR; URINE BACTERIA 7 /uL (0-1359); URINE BILIRUBIN NEGATIVE (NEGATIVE); URINE COLOR YELLOW; URINE GLUCOSE (UA) NEGATIVE (NEGATIVE); URINE KETONE NEGATIVE (NEGATIVE); URINE LEUK ESTERASE NEGATIVE (NEGATIVE); URINE NITRITE NEGATIVE (NEGATIVE); URINE PROTEIN NEGATIVE (NEGATIVE); URINE RBC 48 /uL (0-23.9); URINE UROBILINOGEN 0.2 mg/dL (0.2-1.0); URINE WBC 2 /uL (0-25.8)
--- NOTE | 2020-02-01 07:45 | PDOC ---
*Physical Exam - Vital Signs Last Vital Signs Temp Pulse Resp BP Pulse Ox 97 F L 74 16 116/74 99 02/01/20 06:41 02/01/20 06:41 02/01/20 06:41 02/01/20 06:41 02/01/20 06:41 - Physical Exam General Appearance: Yes: Nourished, Appropriately Dressed HEENT: positive: EOMI, Normal Voice Neck: negative: Tender, Rigid Respiratory/Chest: positive: Lungs Clear, Normal Breath Sounds Cardiovascular: positive: Regular Rhythm, Regular Rate, S1, S2 Gastrointestinal/Abdominal: positive: Normal Bowel Sounds, Flat, Soft Musculoskeletal: positive: Normal Inspection. negative: CVA Tenderness Extremity: positive: Normal Inspection, Normal Range of Motion Integumentary: positive: Normal Color, Dry, Warm Neurologic: positive: Fully Oriented, Alert, Normal Mood/Affect ED Treatment Course - LABORATORY CBC & Chemistry Diagram: 02/01/20 05:15 02/01/20 05:15 - ADDITIONAL ORDERS Additional order review: Laboratory Results 02/01/20 02/01/20 06:50 05:15 Sodium 143 Potassium 4.8 Chloride 108 H Carbon Dioxide 24 Anion Gap 11 BUN 18.5 H Creatinine 1.2 Est GFR (CKD-EPI)AfAm 87.75 Est GFR (CKD-EPI)NonAf 75.72 Random Glucose 113 H Calcium 8.5 Total Bilirubin 0.4 AST 61 H ALT 73 H Alkaline Phosphatase 113 Total Protein 7.5 Albumin 3.8 Urine Color Yellow Urine Appearance Clear Urine pH 5.0 Ur Specific [place] 1.025 Urine Protein Negative Urine Glucose (UA) Negative Urine Ketones Negative Urine Blood 2+ H Urine Nitrite Negative Urine Bilirubin Negative Urine Urobilinogen 0.2 Ur Leukocyte Esterase Negative Urine WBC (Auto) 2 Urine RBC (Auto) 48 Urine Casts (Auto) 1 U Epithel Cells (Auto) 2 Urine Bacteria (Auto) 7 02/01/20 05:15 RBC 5.35 MCV 83.1 MCHC 33.1 RDW 13.4 MPV 9.2 Neutrophils % 66.3 Lymphocytes % 26.0 Monocytes % 6.1 Eosinophils % 1.2 D Basophils % 0.4 - Medications Given in the ED: ED Medications Discontinued Medications Generic Name Dose Route Start Last Admin Trade Name Freq PRN Reason Stop Dose Admin Sodium Chloride 1,000 mls @ 1,000 mls/hr 02/01/20 05:07 02/01/20 05:15 Normal Saline - IV 02/01/20 06:06 1,000 mls/hr ASDIR STA Administration Ketorolac Tromethamine 15 mg 02/01/20 06:31 02/01/20 06:36 Toradol Injection - IVPUSH 02/01/20 06:32 15 mg ONCE ONE Administration Morphine Sulfate 4 mg 02/01/20 05:07 02/01/20 05:15 Morphine Injection - IVPUSH 02/01/20 05:08 4 mg ONCE ONE Administration Ondansetron HCl 4 mg 02/01/20 05:07 02/01/20 05:15 Zofran Injection IVPUSH 02/01/20 05:08 4 mg ONCE ONE Administration Medical Decision Making - Medical Decision Making UA is negative. Pt symptoms have significantly improved with mild right costovertebral tenderness. Pt discharged Prescriptions for ibuprofen, tamsolusin, and zofran 02/01/20 07:46 Discharge - Discharge Information Problems reviewed: Yes Clinical Impression/Diagnosis: Flank pain, Ureterolithiasis Condition: Fair - Admission No - Additional Discharge Information Prescriptions: Tamsulosin HCl [Flomax] 0.4 mg PO DAILY #7 capsule Ibuprofen 600 mg PO QID #28 tablet Ondansetron [Zofran *Odt*] 4 mg SL TID PRN #12 od.tablet PRN Reason: Nausea And/Or Vomiting - Follow up/Referral Referrals: Francois Negrete MD [Staff Physician] - - Patient Discharge Instructions Patient Printed Discharge Instructions: DI for Kidney Stones Additional Instructions: Additional Instructions: Please return to the emergency department with any new or worsening symptoms or concerns including worsening pain, persistent emesis and vomiting, fever. Please follow up with your primary care physician within 72 hours. Please followup with a urologist. Dr Negrete's clinic information is present in the packet, please schedule an appointment for this week. Please take Flomax daily for 7 days Please take ibuprofen 600mg every 6 hours for 1 week Please take zofran 4mg; it is a tablet that dissolves under your tongue. Take it every 8 hours as needed for nausea or vomiting. Instrucciones adicionales: Regrese al departamento de emergencias con cualquier sntoma o inquietud nuevo o que empeore, incluido un dolor que empeora, vmitos y vmitos persistentes, fiebre. Sandra un seguimiento con roy mdico de atencin primaria dentro de las 72 horas. Consulte con un urlogo. La informacin de la clnica del Dr. Negrete est presente en el paquete, programe matheus jes para esta semana. [place] Flomax diariamente amado 7 painter. [place] ibuprofeno 600 mg cada 6 horas amado 1 semana. [place] zofran 4 mg; es mahteus tableta que se disuelve debajo de la lengua. Tmelo cada 8 horas segn sea necesario para las nuseas o los vmitos. Print Language: YAKUT - Post Discharge Activity
[2020-02-01 08:05] VITALS: BP 128/76; PULSE 75; TEMP 97.4
== END 2020-02-01 08:02 | disposition home or self-care (01) ==
LOC: JER 04:17
PROC: 3E033NZ Introduction of Analgesics, Hypnotics, Sedatives into Peripheral Vein, Percutaneous Approach (ICD-10-PCS; principal; 2020-02-01)
PROC: 3E033GC Introduction of Other Therapeutic Substance into Peripheral Vein, Percutaneous Approach (ICD-10-PCS; 2020-02-01)
PROC: 3E0337Z Introduction of Electrolytic and Water Balance Substance into Peripheral Vein, Percutaneous Approach (ICD-10-PCS; 2020-02-01)
DX: R10.9 Unspecified abdominal pain (principal)
CPT/HCPCS: 36415; 74176-TC; 80053; 81003; 85025; 99284-25

== ENCOUNTER 2021-08-20 17:48 | Emergency (ER) | payer OTHER ==
[2021-08-20 18:27] VITALS: BMI 27.4
[2021-08-20 22:15] LABS: BASO % 0.4 % (0-2.0); EOS % 0.8 % (0-4.5); HEMATOCRIT 40.8 % (35.4-49); HEMOGLOBIN 13.7 GM/dL (11.7-16.9); MCH 27.6 pg (25.7-33.7); MCHC 33.6 g/dl (32.0-35.9); MEAN CELL VOLUME 82.2 fl (80-96); MEAN PLT VOLUME 8.3 fl (7.5-11.1); MONO % 6.1 % (3.8-10.2); NEUT % 69.7 % (42.8-82.8); PLATELET COUNT 210 10^3/uL (134-434); RBC 4.97 M/mm3 (4.00-5.60); WHITE BLOOD COUNT 9.2 K/mm3 (4.0-10.0)
[2021-08-20 22:43] LABS: ALBUMIN 3.7 g/dl (3.4-5.0)
[2021-08-20 22:46] LABS: CREATININE 0.8 mg/dL (0.55-1.3)
[2021-08-20 22:48] LABS: BILIRUBIN,TOTAL 0.7 mg/dL (0.2-1)
[2021-08-21 00:29] VITALS: TEMP 98.4
[2021-08-21 01:59] VITALS: BP 127/84; PULSE 72
== END 2021-08-21 02:00 | disposition home or self-care (01) ==
LOC: JER 17:48
DX: R00.2 Palpitations (principal); F14.10 Cocaine abuse, uncomplicated
CPT/HCPCS: 36415; 71046-TC-FY; 80053; 84484; 85025; 93005; 93010; 99285-25